=== PATIENT | female | born 1955 | race Caucasian/White ===

== ENCOUNTER 2016-12-10 17:52 | Inpatient (IN) | payer OTHER ==
--- NOTE | 2016-12-10 18:11 | PDOC ---
History of Present Illness - General Chief Complaint: Altered Mental Status Stated Complaint: altered mental status Time Seen by Provider: 12/10/16 18:02 History Source: Patient, Spouse Exam Limitations: Clinical Condition - History of Present Illness Initial Comments: CHIEF COMPLAINT: 60 y/o afebrile female with unknown PMH BIB EMS for change in mental status. HISTORY OF PRESENT ILLNESS: According to her , the patient left work around 1pm because she didn't feel well. She apparently told co-workers she was dizzy and had stomach pains. She drover herself home. The patient called her around 3pm and informed him she wasn't feeling. He states she called him 5 or 6 times in a row telling him the same thing. He states that is very unusual for her and she kept telling him she thought she was having a stroke. When he got home he states she couldn't remember anything - she did not remember going to work, couldn't remember her birthday, did not remember driving home. He denies facial drooping, slurred speech and weakness of one side. She denies any pain. Vital signs on arrival are BP of 172/96. REVIEW OF SYSTEMS: (Provided by patient and ) GENERAL/CONSTITUTIONAL: No fever/chills. No weakness. No weight change. HEAD, EYES, EARS, NOSE AND THROAT: No change in vision. No ear pain or discharge. No sore throat. CARDIOVASCULAR: No chest pain or shortness of breath. RESPIRATORY: No cough, wheezing, or hemoptysis. GASTROINTESTINAL: No abd pain, nausea, vomiting, diarrhea. GENITOURINARY: No dysuria, frequency, or change in urination. MUSCULOSKELETAL: No joint or muscle swelling or pain. No neck or back pain. SKIN: No rash or easy bruising. NEUROLOGIC: +dizziness. No headache, loss of consciousness, or loss of sensation. PHYSICAL EXAM: GENERAL: The patient is awake, alert, oriented to person, in NAD or obvious discomfort. HEAD: Normal with no signs of trauma. ENT: Pupils equal, round and reactive to light, extraocular movements intact, sclera anicteric, conjunctiva clear. Neck supple. LUNGS: Clear to auscultation bilaterally. Normal excursion. No respiratory distress or use of accessory muscles. CV: RRR, S1/S2, no MRG. Cap refill < 2 sec. ABDOMEN: Soft, non-distended, non-tender even to deep palpation, no hepatomegaly or splenomegaly, no masses. EXTREMITIES: Normal range of motion, no edema. NEUROLOGICAL: Normal speech. Gait not assessed in the ER. CN II-XII grossly intact. Normal finger to nose. Normal rapid alternating movements. No facial droop. No slurred speech. Patient cannot remember the president or what month it is. Pt has retrograde amnesia. PSYCH: Normal mood, normal affect. SKIN: Warm, dry, normal turgor, no rashes or lesions noted. Past History - Past Medical History Allergies/Adverse Reactions: Allergies Allergy/AdvReac Type Severity Reaction Status Date / Time procaine HCl [From Novocain] Allergy Verified 12/10/16 18:44 novacaine Allergy Uncoded 12/10/16 17:59 Home Medications: Ambulatory Orders Ibandronate Sodium [Boniva] 150 mg PO MONTHLY 12/11/16 Aspirin Coated [Ecotrin -] 81 mg PO DAILY #30 tab 12/12/16 Atorvastatin Ca [Lipitor] 80 mg PO HS #30 tablet 12/12/16 Heart Score/ECG Review - ECG Intrepretation Comment:: Twelve-lead EKG was performed and reviewed by Dr. Mendoza. There is normal sinus rhythm with a normal rate. The axis is normal. The intervals are normal. nonspecific ST abnormality. Impression: Abnormal twelve-lead EKG ED Treatment Course - LABORATORY CBC & Chemistry Diagram: 12/11/16 05:35 12/12/16 05:40 - RADIOLOGY Radiology Studies Ordered: Category Date Time Status HEAD CT (STROKE) [CT] Stat CT Scan 12/10/16 18:04 Ordered Medical Decision Making - Medical Decision Making A/P: 60 y/o female with memory loss for approximately 4 hours without focal neuro deficit. Code Rubalcava was called. Plan is as follows: 1. Head CT r/o stroke 2. Labs 3. EKG Head CT IMPRESSION: No evidence of acute intracranial pathology. *DC/Admit/Observation/Transfer Diagnosis at time of Disposition: TGA (transient global amnesia) - Discharge Dispostion Disposition: HOME Condition at time of disposition: Stable - Prescriptions - Referrals NIH Stroke Scale - Last Known Well Date/Time & Onset Date Last Known Well: 12/10/16 Time Last Known Well: 08:00 - Initial Evaluation Level of consciousness: Alert Ask patient the month and their age: Answers one correctly Ask patient to open & close eyes; make fist and let go: Obeys both correctly Best gaze (horizontal eye movement): Normal Visual field testing: No visual field loss Facial paresis (Show teeth/raise eyebrows/close eyes tight): Normal symmetrical movement Motor Function: Left Arm: Normal Motor Function: Right Arm: Normal (extends arm 90 (or 45) degrees for 10 seconds without drift Motor Function: Left Leg: Normal (extends leg 30 degrees for 5 seconds without drift) Motor Function: Right Leg: Normal (extends leg 30 degrees for 5 seconds without drift) Limb Ataxia: Untestable (Joint fused or limb amputated), explain: (Patient on stretcher) Sensory(Use pinprick test arms,legs,trunk,face/side to side): Normal Best language (Describe picture, name items, read sentences): No Aphasia Dysarthria (read several words): Normal articulation Extinction and Inattention: No abnormality - Total Score NIH Stroke Scale Score: 1
[2016-12-10 18:22] LABS: BASOPHIL 0.5 % (0-2.0); EOSINOPHIL 0.1 % (0-4.5); MCH 30.8 pg (25.7-33.7); MCHC 33.9 g/dl (32.0-36.0); MEAN CELL VOLUME 91.1 fl (80-96); MEAN PLT VOLUME 9.1 fl (7.5-11.1); NEUTROPHILS 89.4 % (42.8-82.8); PLATELET COUNT 255 K/MM3 (134-434); RDW 12.8 % (11.6-15.6); WHITE BLOOD COUNT 13.3 K/mm3 (4.0-10.0)
[2016-12-10 18:32] LABS: INR 1.04 (0.82-1.09); PROTHROMBIN TIME (PATIENT) 11.4 SEC (9.98-11.88)
[2016-12-10] MEDS ORDERED: LABETALOL HCL 5 MG/1 ML (100MG/20 ML VIAL) IVPUSH ONE (18:41)
[2016-12-10] MEDS ORDERED: LABETALOL HCL 5 MG/1 ML (200MG/40ML VIAL) IVPB ONE (18:43)
[2016-12-10] MEDS ORDERED: ASPIRIN 81 MG CHEWABLE TABLETS PO ONE (18:51)
[2016-12-10] MEDS ORDERED: ATORVASTATIN CA 80 MG TABLET (FP) PO ONE (18:51)
[2016-12-10 18:52] LABS: ALBUMIN 3.9 g/dl (3.4-5.0); ANION GAP 12 (8-16); CALCIUM 9.4 mg/dL (8.5-10.1); CO2 19 mmol/L (21-32); GLUCOSE,RANDOM 133 mg/dL (74-106)
[2016-12-10] MEDS ORDERED: ATORVASTATIN CA 80 MG TABLET (FP) ONE (18:55)
[2016-12-10] MEDS ORDERED: ASPIRIN 81 MG CHEWABLE TABLETS ONE (18:55)
[2016-12-10 18:57] LABS: ALK PHOS 74 U/L (45-117); BILIRUBIN,TOTAL 0.4 mg/dL (0.2-1.0); CREATININE 0.6 mg/dL (0.55-1.02); SGOT/AST 22 U/L (15-37); SGPT/ALT 28 U/L (12-78); TOT PROT 7.3 g/dl (6.4-8.2); TROPONIN I 0.06 ng/ml (0.00-0.05)
[2016-12-10 19:02] LABS: URINE APPEARANCE CLEAR; URINE BILIRUBIN NEGATIVE (NEGATIVE); URINE COLOR STRAW; URINE GLUCOSE (UA) NEGATIVE (NEGATIVE); URINE KETONE 1+ (NEGATIVE); URINE LEUK ESTERASE NEGATIVE (NEGATIVE); URINE NITRITE NEGATIVE (NEGATIVE); URINE UROBILINOGEN NEGATIVE mg/dL (0.2-1.0)
[2016-12-10 19:06] LABS: URINE BLOOD 2+ (NEGATIVE); URINE PROTEIN 1+ (NEGATIVE)
--- NOTE | 2016-12-10 19:17 | PDOC ---
*Physical Exam - Vital Signs Last Vital Signs Temp Pulse Resp BP Pulse Ox 98.0 F 78 16 178/95 98 12/10/16 18:00 12/10/16 18:59 12/10/16 18:59 12/10/16 19:09 12/10/16 18:59 - Physical Exam Comments: 12/10/16 19:11 The patient was examined by [FATOUMATA Ramires] under my direct supervision. I personally evaluated the patient. I concur with the above findings and the plan of care. Patient is a well-appearing 60-year-old female brought in by EMS for acute onset of confusion and anterograde amnesia on the day of arrival. Patient was last in her baseline state of health on the morning of the day of arrival at 7: 30 AM. She next contacted him at approximately 3 PM to inform him that she had no recollection of the events of the day. She had contacted him on several occasions consequently repeating the same thing. Patient also complained of mild lower abdominal cramps without nausea/vomiting/diarrhea/fever/chills/trauma /seizures. There is no known toxic ingestion. EXAMINATION CONSTITUTIONAL: Well-appearing; well-nourished; in no apparent distress HEAD: Normocephalic; atraumatic EYES: PERRL; EOM intact ENMT: External appears normal; normal oropharynx NECK: Supple; non-tender; no cervical lymphadenopathy CARD: Normal S1, S2; no murmurs, rubs, or gallops RESP: Normal chest excursion with respiration; breath sounds clear and equal bilaterally; no wheezes, rhonchi, or rales ABD: Soft, non-distended; non-tender; no palpable organomegaly, no palpable hernias EXT: Normal ROM in all four extremities; non-tender to palpation; distal pulses intact SKIN: Warm, dry, no rash NEURO: Patient is alert, oriented to self and city only; patient is unable to recall the date or the day of the week; Cranial nerves II through XII are grossly intact; motor is 5 of 54; there is no pronation drift; gait is stable; patient is unable to recall 3 objects, follows complex commands; ED Treatment Course - LABORATORY CBC & Chemistry Diagram: 12/10/16 18:06 12/10/16 18:06 - ADDITIONAL ORDERS Additional order review: Laboratory Results 12/10/16 12/10/16 12/10/16 18:40 18:06 18:06 INR Sodium 133 L Potassium 3.6 Chloride 102 Carbon Dioxide 19 L Anion Gap 12 BUN 12 Creatinine 0.6 Creat Clearance w eGFR > 60 POC Glucometer Random Glucose 133 H Calcium 9.4 Total Bilirubin 0.4 AST 22 ALT 28 Alkaline Phosphatase 74 Creatine Kinase 68 Troponin I 0.06 H Total Protein 7.3 Albumin 3.9 Urine Color Straw Urine Appearance Clear Urine pH 8.0 Urine Protein 1+ H Urine Glucose (UA) Negative Urine Ketones 1+ H Urine Blood 2+ H Urine Nitrite Negative Urine Bilirubin Negative Urine Urobilinogen Negative Ur Leukocyte Esterase Negative Blood Type Cancelled Antibody Screen Cancelled Spec Expiration Date Cancelled 12/10/16 12/10/16 18:06 17:58 INR 1.04 Sodium Potassium Chloride Carbon Dioxide Anion Gap BUN Creatinine Creat Clearance w eGFR POC Glucometer 154.16608 Random Glucose Calcium Total Bilirubin AST ALT Alkaline Phosphatase Creatine Kinase Troponin I Total Protein Albumin Urine Color Urine Appearance Urine pH Urine Protein Urine Glucose (UA) Urine Ketones Urine Blood Urine Nitrite Urine Bilirubin Urine Urobilinogen Ur Leukocyte Esterase Blood Type Antibody Screen Spec Expiration Date 12/10/16 12/10/16 18:06 17:58 RBC 4.30 MCV 91.1 MCHC 33.9 RDW 12.8 MPV 9.1 Neutrophils % 89.4 H Lymphocytes % 5.5 L Monocytes % 4.5 Eosinophils % 0.1 Basophils % 0.5 POC Glucometer [id number] - Medications Given in the ED: ED Medications Discontinued Medications Generic Name Dose Route Start Last Admin Trade Name Freq PRN Reason Stop Dose Admin Aspirin 162 mg 12/10/16 18:51 12/10/16 18:59 Asa - PO 12/10/16 18:52 162 mg ONCE ONE Administration Atorvastatin Calcium 80 mg 12/10/16 18:51 12/10/16 18:59 Lipitor - PO 12/10/16 18:52 80 mg ONCE ONE Administration Labetalol HCl 20 mg 12/10/16 18:41 12/10/16 18:51 Normodyne Injection - IVPUSH 12/10/16 18:42 20 mg ONCE ONE Administration Medical Decision Making - Medical Decision Making 12/10/16 19:56 Patient 60-year-old female who presents with signs and symptoms of transient global amnesia. CT of head shows no evidence of acute intracranial pathology. Patient's serial neurological evaluation reveals no focal deficits. I discussed the case with Dr. De Leon of neurology. He recommends administration of aspirin, Lipitor, MRI of brain and carotid Doppler with admission to stroke for neurological observation. Will admit. *DC/Admit/Observation/Transfer Diagnosis at time of Disposition: TGA (transient global amnesia) - Discharge Dispostion Admit: Yes - Referrals Referrals: Felipe Lundy [Primary Care Provider] - - Patient Instructions - Post Discharge Activity
[2016-12-10 19:18] LABS: URINE BACTERIA RARE /hpf (NONE SEEN); URINE RBC 11 /hpf (0-3); URINE WBC 2 /hpf (3-5)
[2016-12-10] MEDS ORDERED: SODIUM CHLORIDE 500 ML IV STA ×2 (19:32→20:16)
[2016-12-10] MEDS ORDERED: ONDANSETRON 4 MG/2 ML VIAL IVPB ONE (19:32)
[2016-12-10] MEDS ORDERED: ONDANSETRON 4 MG/2 ML VIAL ONE (19:32)
--- NOTE | 2016-12-10 19:41 | PN ---
Teaching Attending Note Name of Resident: Aristeo Arroyo ATTENDING PHYSICIAN STATEMENT I saw and evaluated the patient. I reviewed the resident's note and discussed the case with the resident. I agree with the resident's findings and plan as documented. SUBJECTIVE:60 y/o female with no signifciant medical history brought to ED by c/o not feeling her self. Patient is a poor history due to her medical condition and report that patient suddenly became confuse and had sudden short term memory loss. Patient could not remember what happened to her today and as per vomited and complained of nausea and some stomach ache. OBJECTIVE: Patient alert and oriented to self and place, unable to remember exactly what happened to her today but assisted memory intact, no focal neurological differences. Labs reviewed and Troponin 0.43, WBCs 13K with neutrophils 89%, CT negative, CXR clear, UA negative ASSESSMENT AND PLAN: TGA vs TIA vs CVA- and r/o ACS trend troponin- aspirin given then continue daily Admit to telemetry ECHO, Carotid doppler and repeat CT head Neuro consult Neuro checks Follow urine tox, TSH. Consider LP Continue care as documented in H&P
--- NOTE | 2016-12-10 19:54 | HP ---
HISTORY OF PRESENT ILLNESS: Patient is a 60 year old female with no PMHx who was brought in by EMS for acute onset of confusion and amnesia. Patient reports that she was last at her baseline this morning around 07:00 before going to work. He reports receiving multiple phone calls from her stating that she was not feeling well. Patient has no recollection of calling her . When speaking to the patient she was unable to recall what happened today, including going to work this morning. When I walked out of the room and returned five minutes later, patient did not recognize me or remember speaking to me. Patient 's reports that this is very unusual and that she's had no history of memory loss or forgetting things. Patient also complains of nonradiating mid- epigastric pain associated with one episode of nonbloody vomiting in the emergency department. Patient is unable to recall when the pain started and has no memory of vomiting. Otherwise, patient denies fever, chills, headaches , acute vision changes, chest pain, palpitations, shortness of breath, dysuria, frequency, hematuria. Patient's denies that she uses any drugs or toxic ingestion. PHYSICAL EXAMINATION Vital Signs - 24 hr 12/10/16 12/10/16 12/10/16 18:00 18:45 18:59 Temperature 98.0 F Pulse Rate 84 Pulse Rate [ 78 78 Apical] Respiratory 18 16 16 Rate Blood Pressure 172/96 Blood Pressure 187/98 174/102 [Right Arm] O2 Sat by Pulse 100 98 98 Oximetry (%) 12/10/16 19:09 Temperature Pulse Rate Pulse Rate [ Apical] Respiratory Rate Blood Pressure Blood Pressure 178/95 [Right Arm] O2 Sat by Pulse Oximetry (%) GENERAL: Anxious, Awake, alert, and fully oriented, and in no acute distress HEAD: Normal with no signs of trauma. EYES: Pupils equal, round and reactive to light, extraocular movements intact, sclera anicteric, conjunctiva clear. EARS, NOSE, THROAT: Oropharynx clear without exudates. Moist mucous membranes. NECK: Normal range of motion. LUNGS: Breath sounds equal, clear to auscultation bilaterally. No wheezes, and no crackles. No accessory muscle use. HEART: Regular rate and rhythm, normal S1 and S2 without murmur, rub or gallop. ABDOMEN: Soft, tenderness upon palpation of the mid-epigastric and lower region , not distended, normoactive bowel sounds, no guarding, no rebound. LOWER EXTREMITIES: No peripheral edema. NEUROLOGICAL: Normal Speech, Motor strength 5/5, sensory intact, no facial droop. PSYCHIATRIC: Cooperative. Good eye contact. Anxious Laboratory Results - last 24 hr 12/10/16 12/10/16 12/10/16 17:58 18:06 18:06 WBC 13.3 H RBC 4.30 Hgb 13.3 Hct 39.1 MCV 91.1 MCH 30.8 MCHC 33.9 RDW 12.8 Plt Count 255 MPV 9.1 Neutrophils % 89.4 H Lymphocytes % 5.5 L Monocytes % 4.5 Eosinophils % 0.1 Basophils % 0.5 INR 1.04 Sodium Potassium Chloride Carbon Dioxide Anion Gap BUN Creatinine Creat Clearance w eGFR POC Glucometer [id number] Random Glucose Calcium Total Bilirubin AST ALT Alkaline Phosphatase Creatine Kinase Troponin I Total Protein Albumin Urine Color Urine Appearance Urine pH Urine Protein Urine Glucose (UA) Urine Ketones Urine Blood Urine Nitrite Urine Bilirubin Urine Urobilinogen Ur Leukocyte Esterase Urine RBC Urine WBC Ur Epithelial Cells Urine Bacteria Blood Type Antibody Screen Spec Expiration Date 12/10/16 12/10/16 12/10/16 18:06 18:06 18:40 WBC RBC Hgb Hct MCV MCH MCHC RDW Plt Count MPV Neutrophils % Lymphocytes % Monocytes % Eosinophils % Basophils % INR Sodium 133 L Potassium 3.6 Chloride 102 Carbon Dioxide 19 L Anion Gap 12 BUN 12 Creatinine 0.6 Creat Clearance w eGFR > 60 POC Glucometer Random Glucose 133 H Calcium 9.4 Total Bilirubin 0.4 AST 22 ALT 28 Alkaline Phosphatase 74 Creatine Kinase 68 Troponin I 0.06 H Total Protein 7.3 Albumin 3.9 Urine Color Straw Urine Appearance Clear Urine pH 8.0 Urine Protein 1+ H Urine Glucose (UA) Negative Urine Ketones 1+ H Urine Blood 2+ H Urine Nitrite Negative Urine Bilirubin Negative Urine Urobilinogen Negative Ur Leukocyte Esterase Negative Urine RBC 11 Urine WBC 2 Ur Epithelial Cells Rare Urine Bacteria Rare Blood Type Cancelled Antibody Screen Cancelled Spec Expiration Date Cancelled HEAD CT (12/10/17): No acute pathology ASSESSMENT/PLAN: Patient is a 60 year old female with no PMHx who presents for acute onset of confusion and amnesia. Patient admitted for further monitoring and management. Acute Amnesia mostly Anterograde -With retrograde amnesia, possibly global amnesia -R/O Stroke vs. infectious cause vs metabolic causes vs. psychogenic etiology -NIHSS: 1 -MMSE: 24/30 -Neurology called by ED staff and recommended ASA and Lipitor. Will continue ASA and Lipitor daily -ECHO, CAROTID, and MRI ordered -RPR, Uirne Tox, TSH, Lipid ordered -Speech and Swallow, PT ordered. Will consider LP Elevated BP -Likely secondary to severe anxiety -Lopressor 5mg Q4H PRN -Continue to monitor BP Elevated Troponins -Rule out ACS -Second Trop 0.4 -Repeat EKG and Trop in the morning -Continue ASA Abdominal pain with Vomiting -Possibly gastroenteritis -Protonix daily -Zofran 4mg Q6H PRN Hyponatremia -Level 133 -IVF with NS -Monitor BMP F/E/N -IV NS @50mls/hr -Hyponatremia. C/w IV NS -NPO until speech and swallow eval Prophylaxis -Heparin 5000 units SQ Q8H for DVT -Protonix for GI Disposition -Full code -Admit to tele. MRI in the morning. Visit type - Emergency Visit Emergency Visit: Yes ED Registration Date: 12/10/16 Care time: The patient presented to the Emergency Department on the above date and was hospitalized for further evaluation of their emergent condition. - New Patient This patient is new to me today: Yes Date on this admission: 12/11/16 - Critical Care Critical Care patient: No
[2016-12-10] MEDS ORDERED: FAMOTIDINE 20 MG/50 ML IVPB 50 ML IVPB ONE ×2 (20:16→20:19)
[2016-12-10] MEDS ORDERED: SODIUM CHLORIDE 1,000 ML IV SCH (22:15)
[2016-12-10] MEDS ORDERED: ONDANSETRON 4 MG/2 ML VIAL IVPB PRN (22:15)
[2016-12-10] MEDS ORDERED: METOPROLOL TARTRATE 5 MG/5 ML VIAL IVPUSH PRN ×2 (22:35→22:46)
[2016-12-10] MEDS: HEPARIN NA (PORCINE) 5,000 UNITS/ML 1ML VIAL SQ SCH (22:57)
--- NOTE | 2016-12-10 23:11 | HP ---
CHIEF COMPLAINT: Altered mental status/ Amnesia PCP: Felipe Lundy HISTORY OF PRESENT ILLNESS: 60 year old white female with PMH of genital herpes, who presented to the ED by EMS from [facility] (urgent care) due to confusion, amnesia. the patient was last seen on her base line state of health today at 1.30 PM at her work, when she start not feeling well and dizzy. She drove home by herself and she called her multiple times and informed him about her confusion. arrived around 3 PM and she completely forgot about the event. Patient was not able to remember any thing since the morning. she also complained of a mild lower abdominal cramps, 3/10, radiating to her back and kidney. Patient denies any fever, chills, Diarrhea or constipation. but she was nauseated on arrival and vomited twice. denies any Headache, Blurry vision,Seizure symptoms, weakness or numbness, slurred speech or facial drop.She denies having any urinary symptoms. ER course was notable for: 1- Twelve-lead EKG: There is normal sinus rhythm with a normal rate. The axis is normal. The intervals are normal. nonspecific ST abnormality. 2- Head CT scan : NO acute pathology, NO interacranial hemorrhage or mass effect. 3- Aspirin, lipitor and labetolol was given in the ED. Recent Travel:NO PAST MEDICAL HISTORY: Genital herpes. PAST SURGICAL HISTORY: Appendicitis at age of 14 . Social History: Smoking:None Alcohol:Socially Drugs: None Family History: Hodgkin Lymphoma in brother, Mother Myelodysplasia, father Leukemia, another brother Pacemaker. Allergies procaine HCl [From Novocain] Allergy (Verified 12/10/16 18:44) novacaine Allergy (Uncoded 12/10/16 17:59) HOME MEDICATIONS: Home Medications Medication Instructions Recorded Unobtainable [Unobtainable] 12/10/16 Home Medication List Medication Instructions Recorded Confirmed Type Ibandronate Sodium [Boniva] 150 mg PO MONTHLY 12/11/16 12/11/16 History Valacyclovir HCl [Valtrex -] 500 mg PO BID PRN 12/11/16 12/11/16 History Active Medications Generic Name Dose Route Start Last Admin Trade Name Freq PRN Reason Stop Dose Admin Aspirin 81 mg 12/11/16 10:00 Ecotrin - PO DAILY JENNYFER Atorvastatin Calcium 80 mg 12/11/16 22:00 Lipitor - PO HS JENNYFER Heparin Sodium (Porcine) 5,000 unit 12/10/16 22:45 12/10/16 22:57 Heparin - SQ 5,000 unit TID JENNYFER Administration Sodium Chloride 1,000 mls @ 50 mls/hr 12/10/16 22:15 12/10/16 22:57 Normal Saline - IV 12/11/16 22:28 50 mls/hr ASDIR JENNYFER Administration Metoprolol Tartrate 5 mg 12/10/16 22:46 12/11/16 00:02 Lopressor Injection - IVPUSH 5 mg Q6H PRN Administration HYPERTENSION Ondansetron HCl 4 mg 12/10/16 22:15 Zofran Injection IVPB Q6H PRN NAUSEA Pantoprazole Sodium 40 mg 12/11/16 10:00 Protonix - PO DAILY [facility] SYSTEMS CONSTITUTIONAL: Absent: fever, chills, diaphoresis, generalized weakness, malaise, loss of appetite, weight change HEENT: Absent: rhinorrhea, nasal congestion, throat pain, throat swelling, difficulty swallowing, mouth swelling, ear pain, eye pain, visual changes CARDIOVASCULAR: Absent: chest pain, syncope, palpitations, irregular heart rate, lightheadedness , peripheral edema RESPIRATORY: Absent: cough, shortness of breath, dyspnea with exertion, orthopnea, wheezing, stridor, hemoptysis GASTROINTESTINAL: Absent: +abdominal pain, NO abdominal distension, +nausea, +vomiting, NO diarrhea, constipation, melena, hematochezia GENITOURINARY: Absent: dysuria, frequency, urgency, hesitancy, hematuria, flank pain, genital pain MUSCULOSKELETAL: Absent: myalgia, arthralgia, joint swelling, back pain, neck pain SKIN: Absent: rash, itching, pallor HEMATOLOGIC/IMMUNOLOGIC: Absent: easy bleeding, easy bruising, lymphadenopathy, frequent infections ENDOCRINE: Absent: unexplained weight gain, unexplained weight loss, heat intolerance, cold intolerance NEUROLOGIC: Absent: headache, focal weakness or paresthesias, +dizziness, unsteady gait, seizure,+ mental status changes, bladder or bowel incontinence PSYCHIATRIC: Absent: anxiety, depression, suicidal or homicidal ideation, hallucinations. PHYSICAL EXAMINATION Vital Signs - 24 hr 12/10/16 12/10/16 12/10/16 18:00 18:45 18:59 Temperature 98.0 F Pulse Rate 84 Pulse Rate [ 78 78 Apical] Respiratory 18 16 16 Rate Blood Pressure 172/96 Blood Pressure 187/98 174/102 [Right Arm] O2 Sat by Pulse 100 98 98 Oximetry (%) GENERAL: The patient is awake, alert, oriented to person, in NAD or obvious discomfort. HEAD: Normal with no signs of trauma. EYES: Pupils equal, round and reactive to light, extraocular movements intact, sclera anicteric, conjunctiva clear. No lid lag. EARS, NOSE, THROAT: Ears normal, nares patent, oropharynx clear without exudates. Moist mucous membranes. NECK: Normal range of motion, supple without lymphadenopathy, JVD, or masses. LUNGS: Breath sounds equal, clear to auscultation bilaterally. No wheezes, and no crackles. No accessory muscle use. HEART: Regular rate and rhythm, normal S1 and S2 without murmur, rub or gallop. ABDOMEN: Soft, nontender, not distended, normoactive bowel sounds, no guarding, no rebound, no masses. No hepatomegaly or splenomegaly. MUSCULOSKELETAL: Normal range of motion at all joints. No bony deformities or tenderness. No CVA tenderness. UPPER EXTREMITIES: 2+ pulses, warm, well-perfused. No cyanosis. No clubbing. No peripheral edema. LOWER EXTREMITIES: 2+ pulses, warm, well-perfused. No calf tenderness. No peripheral edema. NEUROLOGICAL: Cranial nerves II-XII intact. Normal speech. Normal gait.Normal finger to nose. Normal rapid alternating movements. No facial droop. Patient cannot remember the president or what month it is. Reflexes are +2 and symmetric at the biceps, triceps,knees, and ankles.plantar response are flexor. Light touch, pinprick, position sense and vibration sense are intact in the fingers and toes.Romberg are absent. PSYCHIATRIC: Cooperative. Good eye contact. Appropriate mood and affect. she reports some anxiety. SKIN: Warm, dry, normal turgor, no rashes or lesions noted, normal capillary refill. MMSE Score 23: 1- she can remember the year and the season but not the date, day or month. 07/06 2- she knows the state, country, town, floor, but not the hospital name 09/03 3-She name 3 object after the examiner.08/01 4- She spell word 'World' back word.10/03 5- She can not rember the 3 objects . 0 6- she can name the object I show her. 07/03 7- she can repeat the phrace 'NO ifs, ands, or buts' .06/01 8-follow commands : 08/01 9-She can read and follow the written instruction.06/01 10-She can make a sentence about any thing. 06/01 11- She can copy the picture. 06/01 Level of consciousness: Alert Ask patient the month and their age: Answers one correctly Ask patient to open & close eyes; make fist and let go: Obeys both correctly Best gaze (horizontal eye movement): Normal Visual field testing: No visual field loss Facial paresis (Show teeth/raise eyebrows/close eyes tight): Normal symmetrical movement Motor Function: Left Arm: Normal Motor Function: Right Arm: Normal (extends arm 90 (or 45) degrees for 10 seconds without drift Motor Function: Left Leg: Normal (extends leg 30 degrees for 5 seconds without drift) Motor Function: Right Leg: Normal (extends leg 30 degrees for 5 seconds without drift) Limb Ataxia: Untestable (Joint fused or limb amputated), explain: (Patient on stretcher) Sensory(Use pinprick test arms,legs,trunk,face/side to side): Normal Best language (Describe picture, name items, read sentences): No Aphasia Dysarthria (read several words): Normal articulation Extinction and Inattention: No abnormality - Total Score NIH Stroke Scale Score: 1 *Twelve-lead EKG: There is normal sinus rhythm with a normal rate. The axis is normal. The intervals are normal. nonspecific ST abnormality. *Head CT scan : NO acute pathology, NO interacranial hemorrhage or mass effect. CBC, BMP 12/10/16 18:06 12/10/16 18:06 Troponin, BNP 12/10/16 12/10/16 18:06 23:30 Troponin I 0.06 H 0.43 H ASSESSMENT/PLAN: 60 year old white female with PMH of genital herpes, who presented to the ED by EMS from [facility] (urgent care) due to confusion, amnesia. she was admitted for [facility] for further evaluation. 1- Transient global amnesia 2/2 TIA/CVA, Acute * MMSE score 23, NIH score 1, mild amnesia * CT head without contrast was negative for any actute intracranial pathology. * Aspirin, lipitor and labetolol was given in the ED * Neurology consultation. * Carotid Doppler * MRI brain * Echocardiogram * TSH * Syphlis(RPR) to rule out STD * Urine toxicology * Repeat CBC , BMP in the morning. * raped swallow evaluation passed * consider lump puncture to R/o HSV encephalitis if no improvement * Continue Aspirin 81 mg, Lipitor , Metolorolol 5 mg Q4h PRN. 2- Trop elevation , R/O ACS * trop I 0.06, 0.43 * F/u trop III * repeat EKG in the morning * copra sampler * Aspirin 81 mg * cardiology consult 3- Elevated BP * 175/95 on admission * Labetolol was given in ED * Monitor BP with goal 140-160/80-90 * contine Metoprol 5 mg IV Q4 PRN * hold Metoprol if HR below 60 * Low sodium diet 3- Gastroenteritis , Acute , * IV NS @ 75 CC /H * Zofran 4 mg IVPB Q6H PRN for nausea * Protonix 40 mg PO daily 4- F/E/N * IV NS 0.9 % 75 ml /hour * Electrolytes WNL * Nutrition: Low sodium Diet. * * 5- Prophylaxis : * DVT moderate risk, will start Hep 5000 units SQ, TID . * Protonix 40 mg PO daily 6- Dispo * pt was admitted to [facility] for evaluation. * patient is full code
[2016-12-11] MEDS ORDERED: ZOLPIDEM TARTRATE 5 MG TABLET PO ONE (00:49)
[2016-12-11] MEDS ORDERED: ZOLPIDEM TARTRATE 5 MG TABLET ONE (01:04)
[2016-12-11 01:19] VITALS: BMI 22.1
[2016-12-11] MEDS ORDERED: METOPROLOL TARTRATE 5 MG/5 ML VIAL ONE (01:46)
[2016-12-11] MEDS ORDERED: PANTOPRAZOLE 40 MG TABLET (FP) PO ONE (01:46)
[2016-12-11] MEDS: METOPROLOL TARTRATE 5 MG/5 ML VIAL IVPUSH ONE ×2 (01:55→02:05)
[2016-12-11] MEDS: HEPARIN NA (PORCINE) 5,000 UNITS/ML 1ML VIAL SQ SCH (05:26)
[2016-12-11] MEDS: METOPROLOL TARTRATE 5 MG/5 ML VIAL IVPUSH PRN (05:26)
[2016-12-11] MEDS ORDERED: MAG HYDROX/AL HYDROX/SIMETH 30 ML UNIT-DOSE CUP PO ONE (06:03)
[2016-12-11 07:21] LABS: BASOPHIL 0.3 % (0-2.0); MCH 31.7 pg (25.7-33.7); MCHC 34.8 g/dl (32.0-36.0); MEAN CELL VOLUME 91.1 fl (80-96); MEAN PLT VOLUME 8.9 fl (7.5-11.1); NEUTROPHILS 87.9 % (42.8-82.8); PLATELET COUNT 249 K/MM3 (134-434); RDW 12.7 % (11.6-15.6); WHITE BLOOD COUNT 14.5 K/mm3 (4.0-10.0)
[2016-12-11] MEDS ORDERED: SODIUM CHLORIDE 1,000 ML IV SCH (07:45)
[2016-12-11 07:52] LABS: INR 1.07 (0.82-1.09); PROTHROMBIN TIME (PATIENT) 11.8 SEC (9.98-11.88)
[2016-12-11 07:55] LABS: ACTIVATED PTT 30.8 SECONDS (26.9-34.4)
[2016-12-11 07:56] LABS: ANION GAP 11 (8-16); CALCIUM 8.7 mg/dL (8.5-10.1); CHOLESTEROL 141 mg/dL (50-200); CO2 22 mmol/L (21-32); CREATININE 0.6 mg/dL (0.55-1.02); GLUCOSE,RANDOM 128 mg/dL (74-106); LDL CHOLESTEROL (ONLY SJRH) 74 mg/dL (5-100)
[2016-12-11 07:57] LABS: THYROID STIMULATING HORMONE 0.23 uIU/ml (0.358-3.74)
--- NOTE | 2016-12-11 08:50 | CON.NEURO ---
Consult - History of Present Illness History of Present Illness: 60 year old female with no PMHx who was brought in by EMS for acute onset of confusion and amnesia. Patient reports that she was last at her baseline this morning around 07:00 before going to work. He reports receiving multiple phone calls from her stating that she was not feeling well. Patient has no recollection of calling her . When speaking to the patient she was unable to recall what happened today, including going to work this morning. When I walked out of the room and returned five minutes later, patient did not recognize me or remember speaking to me. Patient's reports that this is very unusual and that she's had no history of memory loss or forgetting things. Patient also complains of nonradiating mid-epigastric pain associated with one episode of nonbloody vomiting in the emergency department. Patient is unable to recall when the pain started and has no memory of vomiting. Otherwise, patient denies fever, chills, headaches, acute vision changes, chest pain, palpitations, shortness of breath, dysuria, frequency, hematuria. Patient' s denies that she uses any drugs or toxic ingestion. THis AM -- still has poor recollection of yesterday events though is able to recall todays events; no similar events in past . no hx of seizure. no MORA or focal motor,sensory c/o. MRI BRAIN :volume loss, no new stroke - Past Medical History ...: No - Alcohol/Substance Use Hx Alcohol Use: Yes (about 4 glasses of wine per week) - Smoking History Smoking history: Never smoked Have you smoked in the past 12 months: No Home Medications - Allergies Allergies/Adverse Reactions: Allergies Allergy/AdvReac Type Severity Reaction Status Date / Time procaine HCl [From Novocain] Allergy Verified 12/10/16 18:44 novacaine Allergy Uncoded 12/10/16 17:59 - Home Medications Home Medications: Ambulatory Orders Ibandronate Sodium [Boniva] 150 mg PO MONTHLY 12/11/16 Valacyclovir HCl [Valtrex -] 500 mg PO BID PRN 12/11/16 Physical Exam-Neuro Vital Signs: Vital Signs Temperature 98.6 F 12/11/16 05:25 Pulse Rate 68 12/11/16 06:42 Respiratory Rate 18 12/11/16 06:42 Blood Pressure 157/77 12/11/16 06:42 O2 Sat by Pulse Oximetry (%) 100 12/10/16 21:45 Constitutional: Yes: Well Nourished, No Distress Labs: CBC, BMP 12/11/16 05:35 12/11/16 05:35 INR, PTT INR 1.07 (0.82-1.09) 12/11/16 05:35 - Neuro Exam Level Of Consciousness: Yes: Alert, Oriented to Person (good memory though can not recall yesterday events, EOMI, VFF, no facial, motor 5/5, sesnory intact, reflxes WNL) NIH Stroke Scale - Total Score NIH Stroke Scale Score: 0 Imaging - Results MRI: Report Reviewed, Image Reviewed Assessment/Plan Suspect Transient global amnesia, back to baseline MRI BRAIN no structural pathology/stroke FU Dopplers, ECHO, no evidence of seizure ASA may be causing GI irratation-change to ECOTRIN stable for DC from neuro stand point outpt FU thanks DR De Leon [phone]
--- NOTE | 2016-12-11 09:04 | CONSULT ---
Admitting History and Physical - Past Medical History ...: No - Smoking History Smoking history: Never smoked Have you smoked in the past 12 months: No - Alcohol/Substance Use Hx Alcohol Use: Yes (about 4 glasses of wine per week) History - Admission Reason For Visit: TRANSIENT GLOBAL AMNESIA - Hearing Hearing: Normal Speech Evaluation - Communication Primary Language: NEPALI Communication: Yes: Within Normal Limits Oral Expression Ability: Yes: No Impairment - Speech Production Apraxia: No Able to Make Needs Known: Yes: WNL Intelligibility: Yes: WNL - Speech Characteristics Voice Loudness: Normal Voice Pitch: Yes: Normal Voice Phonatory-based Quality: Yes: Normal Speech Pattern: Normal Nasal Resonance: Normal Articulation: Yes: Precise Rate of Speech: Intact - Language/Auditory Comprehension Follows: Yes: Complex Commands (WFL) Observation: Able to respond to yes/no queries: Yes, Yes/No Confusion: No, Comprehends Conversational Speech: Yes, Benefits from Slow Speech: No, Benefits from Repetiton: No, Benefits from Increased Volume of Speech: No - Language/Verbal Expression Able to Respond to Simple Queries: Yes: WNL Able to Communicate Wants and Needs: Yes: WNL Functional Communication Status: Yes: WNL Aware of Errors: Yes Attempts to Correct Errors: Yes Use of Gestures: No Written Expression: WFL Oral Expression: WFL Reading Comprehension: WFL Calculations: not examined Attention: Yes: Intact - Memory/Perception investment sales assistant Memory: Yes: WNL Short Term Memory: Yes: WNL - Swallow Evaluation/Bedside Assessment Current Nutritional Intake: Regular, Thin Liquids Oral Secretions: Yes: WFL Tracheostomy Present: No Patient on Ventilator: No Dentition: Yes: Adequate Facial Symmetry at Rest: Symmetrical Facial Symmetry on Retraction: Symmetrical Facial Movement: Controlled Sensation: Normal Facial Comment: WF for speech and swalowing purposes. Jaw Position: Closed at Rest Against Resistance Opening: Normal Against Resistance Closing: Normal Pucker Lips: Normal Smile: Normal Lips, Comment: WF for speech and swalowing purposes. Lingual Movement: Normal Lingual Speed of Movement: Normal Lingual Movement Strgth Against Opposition: Normal Lingual Movement Characteristics: Normal Lingual Comment: [facility] for speech and swalowing purposes. Soft Palate Description: Normal Color, Normal Arch Hard Palate Description: Normal Color, Normal Arch Gag Reflex: Strong Bite Reflex: Present Velopharyngeal Movement: Normal Laryngeal Elevation: WFL Laryngeal Movement: Able to Palpate Needs Assistance: No Rate of Intake: WFL Bolus Size: Small Labial Seal: WFL Chewing: WFL Oral Prep Time: WFL A-P Transit: WFL Pocketing: None Coughing/Throat Clear: No Other Findings/Remarks: 60 yo female seen at bedside during breakfast for swallow eval to rule out dysphagia with spouse present. Pt is verbal, A&Ox3, cooperative. Vocal quality and airway protection are WFL at this time. Oral motor examination revealed all structures are WFL for speech and swallowing purposes at this time. Pt admitted to [facility] for AMS and acute memory loss. Pt reported to this clinician that she has had a recent loss of appetite and at the moment is just thirsty. Also reported minor abdominal pain. Pt given po trials of pureed, and regular solids without assistance revealed reduced acceptance and small bolus sizes, adequate mastication and transport. Pharyngeal swallows appears timely with no coughing, changes in respiration or voicing. Thin liquids trials without assistance via cup and straw were unremarkable for dysphagia and / or aspiration. Recommendations - Speech Evaluation, Impression/Plan Impression: 60 year old female presents with adequate vocal quality and no s/s of dysphagia at this time. Correction Goals: tolerate the least restrictive diet without s/s of aspiration. Short Term Goals: tolerate regular solids and thin liquids without s/s of aspiration. - Dysphagia Impressions/Plan Swallowing Skills: WFL Dysphagia Impressions: No Impairment Dysphagia Treatment Plan: Small Bites, Safe Rate Dysphagia Evaluation Summary: 60 yo female does not present with dysphagia at this time. No s/s of aspiration at this time. Recommendations: Continue with regular solids and thin liquids as tolerated. Results given to charge lpn and pcp via chart. Recommendations: GI Consult (consider secondary to reported minor abdominal.) - Recommendations Diet Consistency: Regular Medication Administration: Whole with water Liquids: Thin Liquids
[2016-12-11] MEDS ORDERED: POTASSIUM CHLORIDE ORAL LIQUID 20 MEQ/15 ML PO ONE (09:15)
[2016-12-11] MEDS ORDERED: PANTOPRAZOLE 40 MG TABLET (FP) PO SCH (10:00)
[2016-12-11] MEDS: ASPIRIN COATED 81 MG TABLET.EC PO SCH (10:01)
[2016-12-11] MEDS: PANTOPRAZOLE 40 MG TABLET (FP) PO SCH (10:01)
[2016-12-11 10:07] LABS: URINE MARIJUANA THC NEGATIVE ng/ml (CUTOFF=50)
[2016-12-11 10:22] LABS: TROPONIN I 0.75 ng/ml (0.00-0.05)
--- NOTE | 2016-12-11 11:12 | PN ---
Physical Exam: SUBJECTIVE: Patient seen and examined at bedside. No acute events overnight. Today, patient is oriented and states that she has mid-epigastric pain and decreased appetite. Denies shortness of breath, diaphoresis, radiating chest pain, nausea or vomiting. OBJECTIVE: Vital Signs Period Temp Pulse Resp BP Sys/Floyd Pulse Ox Last 24 Hr 98.6 F-99.4 F 66-80 18-20 153-184/62-95 98-100 GENERAL: The patient is awake, alert, and oriented HEAD: Normal with no signs of trauma. EYES: PERRL, extraocular movements intact, sclera anicteric, conjunctiva clear. ENT: Ears normal, nares patent, oropharynx clear without exudates, moist mucous membranes. NECK: Trachea midline, supple. LUNGS: Breath sounds equal, clear to auscultation bilaterally, no wheezes, no crackles, no accessory muscle use. HEART: Regular rate and rhythm, S1, S2 without murmur, rub or gallop. ABDOMEN: tender to palpation in mid-epigastric area EXTREMITIES: 2+ posterior tibial pulses, warm, well-perfused, no edema. NEUROLOGICAL: Cranial nerves II through XII grossly intact. Normal speech. Cerebellar function intact, AAOx3. 5/5 motor strength in upper and lower extremities. Memory, repetition, recall intact. Laboratory Results - last 24 hr 12/10/16 12/11/16 12/11/16 23:30 05:35 05:35 WBC 14.5 H RBC 4.12 Hgb 13.1 Hct 37.6 MCV 91.1 MCH 31.7 MCHC 34.8 RDW 12.7 Plt Count 249 MPV 8.9 Neutrophils % 87.9 H Lymphocytes % 6.0 L Monocytes % 5.8 Eosinophils % 0.0 D Basophils % 0.3 INR 1.07 PTT (Actin FS) 30.8 Sodium Potassium Chloride Carbon Dioxide Anion Gap BUN Creatinine Random Glucose Calcium Troponin I 0.43 H Triglycerides Cholesterol Total LDL Cholesterol HDL Cholesterol TSH Opiates Screen Methadone Screen Barbiturate Screen Phencyclidine Screen Ur Amphetamines Screen MDMA (Ecstasy) Screen Benzodiazepines Screen Cocaine Screen U Marijuana (THC) Screen RPR Titer 12/11/16 12/11/16 12/11/16 05:35 05:35 05:35 WBC RBC Hgb Hct MCV MCH MCHC RDW Plt Count MPV Neutrophils % Lymphocytes % Monocytes % Eosinophils % Basophils % INR PTT (Actin FS) Sodium 135 L Potassium 3.2 L Chloride 102 Carbon Dioxide 22 Anion Gap 11 BUN 7 D Creatinine 0.6 Random Glucose 128 H Calcium 8.7 Troponin I 0.75 H* Triglycerides 73 Cholesterol 141 Total LDL Cholesterol 74 HDL Cholesterol 65 H TSH 0.23 L Opiates Screen Methadone Screen Barbiturate Screen Phencyclidine Screen Ur Amphetamines Screen MDMA (Ecstasy) Screen Benzodiazepines Screen Cocaine Screen U Marijuana (THC) Screen RPR Titer Nonreactive 12/11/16 06:05 WBC RBC Hgb Hct MCV MCH MCHC RDW Plt Count MPV Neutrophils % Lymphocytes % Monocytes % Eosinophils % Basophils % INR PTT (Actin FS) Sodium Potassium Chloride Carbon Dioxide Anion Gap BUN Creatinine Random Glucose Calcium Troponin I Triglycerides Cholesterol Total LDL Cholesterol HDL Cholesterol TSH Opiates Screen Negative Methadone Screen Negative Barbiturate Screen Negative Phencyclidine Screen Negative Ur Amphetamines Screen Negative MDMA (Ecstasy) Screen Negative Benzodiazepines Screen Negative Cocaine Screen Negative U Marijuana (THC) Screen Negative RPR Titer Active Medications Generic Name Dose Route Start Last Admin Trade Name Freq PRN Reason Stop Dose Admin Aspirin 81 mg 12/11/16 10:00 12/11/16 10:01 Ecotrin - PO 81 mg DAILY JENNYFER Administration Atorvastatin Calcium 80 mg 12/11/16 22:00 Lipitor - PO HS JENNYFER Heparin Sodium (Porcine) 5,000 unit 12/10/16 22:45 12/11/16 05:26 Heparin - SQ 5,000 unit TID JENNYFER Administration Sodium Chloride 1,000 mls @ 75 mls/hr 12/11/16 07:45 12/11/16 08:45 Normal Saline - IV 75 mls/hr ASDIR JENNYFER Administration Metoprolol Tartrate 5 mg 12/11/16 01:41 12/11/16 05:26 Lopressor Injection - IVPUSH 5 mg Q4H PRN Administration HYPERTENSION Ondansetron HCl 4 mg 12/10/16 22:15 12/11/16 09:00 Zofran Injection IVPB 4 mg Q6H PRN Administration NAUSEA Pantoprazole Sodium 40 mg 12/11/16 10:00 12/11/16 10:01 Protonix - PO 40 mg DAILY JENNYFER Administration ASSESSMENT/PLAN: Patient is a 60 year old female with PMH genital herpes who presents to the ED from [facility] for acute onset of confusion and amnesia. Patient admitted for transient retrograde amnesia . 1. Acute transient retrograde amnesia -NIHSS: 1 -MMSE: 24/30 -On recommended ASA 81 mg PO and Lipitor 80 mg PO as per neuro -ECHO report -RPR negative, Urine Tox, Lipid panel ordered -Speech and Swallow- regular diet -Will consider LP 2. Elevated Troponins -Troponins trending up: 0.06, 0.43, 0.75 -Fourth troponin 0.7 trending down -Continue aspirin 81 mg PO 3. Elevated BP -Lopressor 5mg Q4H PRN -Continue to monitor BP 4. Mid-epigastric Abdominal pain -Protonix daily -Zofran 4mg Q6H PRN F/E/N -IV NS @50mls/hr Prophylaxis -Heparin 5000 units SQ Q8H for DVT -Protonix for GI Visit type - Emergency Visit Emergency Visit: No - New Patient This patient is new to me today: No - Critical Care Critical Care patient: No
[2016-12-11] MEDS ORDERED: FAMOTIDINE 20 MG/50 ML IVPB 50 ML IVPB ONE (13:03)
--- NOTE | 2016-12-11 13:05 | EKG ---
Test Reason : Blood Pressure : / mmHG Vent. Rate : 083 BPM Atrial Rate : 083 BPM P-R Int : 142 ms QRS Dur : 092 ms QT Int : 416 ms P-R-T Axes : 066 068 053 degrees QTc Int : 488 ms NORMAL SINUS RHYTHM NONSPECIFIC ST ABNORMALITY ABNORMAL ECG WHEN COMPARED WITH ECG OF 11-DEC-2016 05:26, NO SIGNIFICANT CHANGE WAS FOUND Confirmed by KINGSLEY ADHIKARI MD ([id number]) on 12/11/2016 1:05:38 PM Referred By: SHANA MCINTOSH Confirmed By:KINGSLEY ADHIKARI MD
--- NOTE | 2016-12-11 13:07 | EKG ---
Test Reason : Blood Pressure : / mmHG Vent. Rate : 062 BPM Atrial Rate : 062 BPM P-R Int : 136 ms QRS Dur : 096 ms QT Int : 480 ms P-R-T Axes : 055 064 060 degrees QTc Int : 487 ms NORMAL SINUS RHYTHM NONSPECIFIC ST ABNORMALITY ABNORMAL ECG WHEN COMPARED WITH ECG OF 10-DEC-2016 18:25, NO SIGNIFICANT CHANGE WAS FOUND Confirmed by KINGSLEY ADHIKARI MD ([id number]) on 12/11/2016 1:07:43 PM Referred By: MERCED REYNA Confirmed By:KINGSLEY ADHIKARI MD
--- NOTE | 2016-12-11 13:10 | EKG ---
Test Reason : Blood Pressure : / mmHG Vent. Rate : 072 BPM Atrial Rate : 072 BPM P-R Int : 138 ms QRS Dur : 098 ms QT Int : 422 ms P-R-T Axes : 051 064 053 degrees QTc Int : 462 ms NORMAL SINUS RHYTHM NORMAL ECG NO PREVIOUS ECGS AVAILABLE Confirmed by KINGSLEY ADHIKARI MD ([id number]) on 12/11/2016 1:09:46 PM Referred By: Confirmed By:KINGSLEY ADHIKARI MD
--- NOTE | 2016-12-11 13:28 | PN ---
Teaching Attending Note Name of Resident: Griselda Cerda ATTENDING PHYSICIAN STATEMENT I saw and evaluated the patient. I reviewed the resident's note and discussed the case with the resident. I agree with the resident's findings and plan as documented. SUBJECTIVE: NO OBJECTIVE: Vital Signs Temperature 98.6 F 12/11/16 05:25 Pulse Rate 68 12/11/16 06:42 Respiratory Rate 18 12/11/16 06:42 Blood Pressure 157/77 12/11/16 06:42 O2 Sat by Pulse Oximetry (%) 100 12/10/16 21:45 CBC, BMP 12/11/16 05:35 12/11/16 05:35 MRI of the brain - no acute abnormality ECHO p EKG upon presentation - NSR no ST changes EKG today - T wave ASSESSMENT AND PLAN:
[2016-12-11] MEDS: ENOXAPARIN NA (PORCINE) 60 MG/0.6 ML DISP.SYRIN SQ SCH ×2 (13:45→21:23)
--- NOTE | 2016-12-11 14:47 | PN ---
Teaching Attending Note Name of Resident: Chris Ohara ATTENDING PHYSICIAN STATEMENT I saw and evaluated the patient. I reviewed the resident's note and discussed the case with the resident. I agree with the resident's findings and plan as documented. SUBJECTIVE: back to baseline of mental status denies chest pain or SOB reports mild epigastric abdominal discomfort OBJECTIVE: Vital Signs Temperature 98.3 F 12/11/16 13:54 Pulse Rate 83 12/11/16 13:54 Respiratory Rate 16 12/11/16 13:54 Blood Pressure 168/86 12/11/16 13:54 O2 Sat by Pulse Oximetry (%) 100 12/11/16 09:00 CBC, BMP 12/11/16 05:35 12/11/16 05:35 Abnormal Lab Results 12/10/16 12/10/16 12/10/16 18:06 18:06 18:40 WBC 13.3 H Neutrophils % 89.4 H Lymphocytes % 5.5 L Sodium 133 L Potassium Carbon Dioxide 19 L Random Glucose 133 H Troponin I 0.06 H HDL Cholesterol TSH Urine Protein 1+ H Urine Ketones 1+ H Urine Blood 2+ H 12/10/16 12/11/16 12/11/16 23:30 05:35 05:35 WBC 14.5 H Neutrophils % 87.9 H Lymphocytes % 6.0 L Sodium 135 L Potassium 3.2 L Carbon Dioxide Random Glucose 128 H Troponin I 0.43 H HDL Cholesterol 65 H TSH Urine Protein Urine Ketones Urine Blood 12/11/16 05:35 WBC Neutrophils % Lymphocytes % Sodium Potassium Carbon Dioxide Random Glucose Troponin I 0.75 H* HDL Cholesterol TSH 0.23 L Urine Protein Urine Ketones Urine Blood MRI of the brain - no acute abnormality ECHO p EKG upon presentation - NSR no ST changes EKG today - no acute change ASSESSMENT AND PLAN: 1. Altered mental status - likely secondary to Transient Global Amnesia vs TIA- now mostly resolved. MRI -. - obtain ECHO - BP control - ASA 2. Elevated cardiac enzymes - possibly due to HTN vs TIA, NSTEMI can not be excluded - Echo - asa - Lovenox one dose - cardiology eval discussed with patient and family in extent
--- NOTE | 2016-12-11 18:05 | CON.CARD ---
Cardiology Consult (text) - Consultation Consultation Note: CC: elevated troponins 60 yo with h/o HSV on valtrex presents with altered mental status - imaging neg for CVA- thought to have transient global amnesia. Hosp course c/b hyponatremia/ab TSH and mildly elevated troponins. Discrete episode of short-term memory loss. Now resolved. No prior anginal sx's. Swims regular without angina or limitations. no recent change in exercise capacity. Also + mid-epigastric pain associated with one episode of nonbloody vomiting while at hospital. + hypertension here. denies prior h/o htn. --> attributes this to anxiety and discomfort. Otherwise, patient denies fever, chills, headaches, acute vision changes, chest pain, palpitations, shortness of breath, dysuria, frequency, hematuria. Patient' s denies that she uses any drugs or toxic ingestion. + chronic insomnia for which she takes medical marijuana on a nightly basis. No recent change in supply/brand of marijuana. no similar events in past . no hx of seizure. no cp, sob, orthopnea, pnd, le edema, palps, dizziness, bleeding. no MORA or focal motor,sensory c/o, no f/c/s, cough, congestion, rashes, . hyponatremia has improved with ivf pmhx/pshx: per hpi social hx: + medical marijuana, social etoh (few glasses of wine a wekk), no tobacco family hx: no h/o cad ros: per hpi Ambulatory Orders Ibandronate Sodium [Boniva] 150 mg PO MONTHLY 12/11/16 Valacyclovir HCl [Valtrex -] 500 mg PO BID PRN 12/11/16 Current Medications Aspirin (Ecotrin -) 81 mg PO DAILY [facility] Last Admin: 12/11/16 10:01 Dose: 81 mg Atorvastatin Calcium (Lipitor -) 80 mg PO HS [facility] Enoxaparin Sodium (Lovenox -) 60 mg SQ BID [facility] Last Admin: 12/11/16 13:45 Dose: 60 mg Sodium Chloride (Normal Saline -) 1,000 mls @ 75 mls/hr IV ASDIR [facility] Last Admin: 12/11/16 08:45 Dose: 75 mls/hr Famotidine/Sodium Chloride (Pepcid 20 Mg Premixed Ivpb -) 50 mls @ 100 mls/hr IVPB BID [facility] Metoprolol Tartrate (Lopressor Injection -) 5 mg IVPUSH Q4H PRN PRN Reason: HYPERTENSION Last Admin: 12/11/16 05:26 Dose: 5 mg Pantoprazole Sodium (Protonix -) 40 mg PO DAILY [facility] Last Admin: 12/11/16 10:01 Dose: 40 mg Vital Signs - 24 hr 12/10/16 12/10/16 12/10/16 18:45 18:59 19:09 Temperature Pulse Rate Pulse Rate [ 78 78 Apical] Respiratory 16 16 Rate Blood Pressure Blood Pressure 187/98 174/102 178/95 [Right Arm] O2 Sat by Pulse 98 98 Oximetry (%) 12/10/16 12/10/16 12/10/16 20:57 21:45 23:45 Temperature 98.8 F 99.2 F Pulse Rate 70 80 Pulse Rate [ 75 Apical] Respiratory 20 18 18 Rate Blood Pressure 161/90 166/92 Blood Pressure 175/95 [Right Arm] O2 Sat by Pulse 98 100 Oximetry (%) 12/11/16 12/11/16 12/11/16 00:02 01:30 02:00 Temperature 99.4 F Pulse Rate 70 66 72 Pulse Rate [ Apical] Respiratory 18 18 Rate Blood Pressure 166/92 184/92 163/89 Blood Pressure [Right Arm] O2 Sat by Pulse Oximetry (%) 12/11/16 12/11/16 12/11/16 05:25 05:26 05:55 Temperature 98.6 F Pulse Rate 72 68 72 Pulse Rate [ Apical] Respiratory 18 18 Rate Blood Pressure 183/62 183/62 182/90 Blood Pressure [Right Arm] O2 Sat by Pulse Oximetry (%) 12/11/16 12/11/16 12/11/16 06:42 09:00 10:00 Temperature 98.7 F Pulse Rate 68 77 Pulse Rate [ Apical] Respiratory 18 18 Rate Blood Pressure 157/77 151/74 Blood Pressure [Right Arm] O2 Sat by Pulse 100 Oximetry (%) 12/11/16 13:54 Temperature 98.3 F Pulse Rate 83 Pulse Rate [ Apical] Respiratory 16 Rate Blood Pressure 168/86 Blood Pressure [Right Arm] O2 Sat by Pulse Oximetry (%) Intake & Output 12/09/16 12/10/16 12/11/16 12/12/16 07:59 07:59 07:59 07:59 Intake Total 100 600 Output Total 400 Balance -300 600 Weight 125 lb 3.2 oz nad, calm jvd flat, neck supple ctab, nl effort rrr nl s1, s2 no mrg + bs soft nt nd ext without e/c/c + dp/pt aaox3 no carotid bruits no jaundice, diaphoresis CBC, BMP 12/11/16 05:35 12/11/16 05:35 Laboratory Tests 12/10/16 12/10/16 12/11/16 18:06 23:30 05:35 Calcium 9.4 Total Bilirubin 0.4 AST 22 ALT 28 Alkaline Phosphatase 74 Creatine Kinase 68 Troponin I 0.06 H 0.43 H Albumin 3.9 Triglycerides 73 Cholesterol 141 Total LDL Cholesterol 74 HDL Cholesterol 65 H TSH Opiates Screen Methadone Screen Barbiturate Screen Phencyclidine Screen Ur Amphetamines Screen MDMA (Ecstasy) Screen Benzodiazepines Screen Cocaine Screen U Marijuana (THC) Screen RPR Titer 12/11/16 12/11/16 12/11/16 05:35 05:35 06:05 Calcium Total Bilirubin AST ALT Alkaline Phosphatase Creatine Kinase Troponin I 0.75 H* Albumin Triglycerides Cholesterol Total LDL Cholesterol HDL Cholesterol TSH 0.23 L Opiates Screen Negative Methadone Screen Negative Barbiturate Screen Negative Phencyclidine Screen Negative Ur Amphetamines Screen Negative MDMA (Ecstasy) Screen Negative Benzodiazepines Screen Negative Cocaine Screen Negative U Marijuana (THC) Screen Negative RPR Titer Nonreactive 12/11/16 14:10 Calcium Total Bilirubin AST ALT Alkaline Phosphatase Creatine Kinase Troponin I 0.73 H* Albumin Triglycerides Cholesterol Total LDL Cholesterol HDL Cholesterol TSH Opiates Screen Methadone Screen Barbiturate Screen Phencyclidine Screen Ur Amphetamines Screen MDMA (Ecstasy) Screen Benzodiazepines Screen Cocaine Screen U Marijuana (THC) Screen RPR Titer EKG 12/10: wnl EKG 12/11 x 2: nsr. prolonged qtc. subtle non-specific diffuse ST sagging tele: NSR, sinus tach. one episode of 3beat nsvt. echo 11/2016: nl lv/v. 1+ mr cxr: wnl head CT/brain MRI: neg for stroke 60 yo with no sig pmhx presents with altered mental status imaging neg for CVA- thought to have transient global amnesia. Hosp course c/b hyponatremia/ab TSH and mildly elevated troponins. elevated troponin - troponin peak at the lower limit of positive. (very small elevation). Nl ck. Echo wnl. EKG with non-specific changes. Low suspicion for ACS. No need for therapeutic lovenox dosing, can lower dose to dvt prophylaxis dose. Con't statin until stress echo. Con't asa - No significant CAD RF's and there are reports of transient global amnesia causing small troponin elevations. However, EKG is not totally normal, and patient with ongoing abdominal pain ?anginal equivalent. Will further evaluate with stress echo in am to definitely rule out cad as etiology. - lyte repletion prolonged qt - not present on admit. ? worsened by zofran - would avoid qt prolonging meds including zofran and pepcid --> stopping famotidine bid (pmd can replace with non-qt prolonging alternative if needed) - lyte repletion htn - no known diagnosis. Improving. Will give one dose of norvasc and con't to assess need for ongoing therapy. transient global amnesia - improving, neuro following Low TSH - Management per pmd.
[2016-12-11] MEDS ORDERED: ALPRAZolam 0.25 MG TABLET PO ONE ×2 (20:59→21:07)
[2016-12-11] MEDS ORDERED: ATORVASTATIN CA 80 MG TABLET (FP) PO SCH (22:00)
[2016-12-11] MEDS ORDERED: FAMOTIDINE 20 MG/50 ML IVPB 50 ML IVPB SCH (22:00)
[2016-12-11] MEDS ORDERED: amLODIPine BESYLATE 5 MG TABLET (FP) PO ONE (23:15)
[2016-12-12] MEDS ORDERED: MAG HYDROX/AL HYDROX/SIMETH 30 ML UNIT-DOSE CUP PO ONE (01:55)
[2016-12-12] MEDS ORDERED: amLODIPine BESYLATE 5 MG TABLET (FP) PO ONE (02:00)
[2016-12-12] MEDS: METOPROLOL TARTRATE 5 MG/5 ML VIAL IVPUSH PRN (02:15)
[2016-12-12 07:03] LABS: ANION GAP 8 (8-16); CALCIUM 8.9 mg/dL (8.5-10.1); CO2 26 mmol/L (21-32); CREATININE 0.6 mg/dL (0.55-1.02); GLUCOSE,RANDOM 111 mg/dL (74-106); MAGNESIUM 2.4 mg/dL (1.8-2.4)
[2016-12-12] MEDS: PANTOPRAZOLE 40 MG TABLET (FP) PO SCH ×2 (10:08→14:21)
[2016-12-12] MEDS: ASPIRIN COATED 81 MG TABLET.EC PO SCH ×2 (10:08→14:21)
--- NOTE | 2016-12-12 10:34 | PN ---
Progress Note (short form) - Note Progress Note: s: no cp sob palps dizzy o: Vital Signs Period Temp Pulse Resp BP Sys/Floyd Pulse Ox Last 24 Hr 98.0 F-99.9 F 81-122 16-18 131-168/80-98 96 nad, calm jvd flat, neck supple ctab, nl effort rrr nl s1, s2 no mrg + bs soft nt nd ext without e/c/c aaox3 no jaundice, diaphoresis Current Medications Generic Name Dose Route Start Last Admin Trade Name Freq PRN Reason Stop Dose Admin Aspirin 81 mg 12/11/16 10:00 12/12/16 10:08 Ecotrin - PO Not Given DAILY JENNYFER Atorvastatin Calcium 80 mg 12/11/16 22:00 12/11/16 21:24 Lipitor - PO 80 mg HS JENNYFER Administration Enoxaparin Sodium 60 mg 12/13/16 10:00 Lovenox - SQ DAILY JENNYFER Sodium Chloride 1,000 mls @ 75 mls/hr 12/11/16 07:45 12/11/16 08:45 Normal Saline - IV 75 mls/hr ASDIR JENNYFER Administration Metoprolol Tartrate 5 mg 12/11/16 01:41 12/12/16 02:15 Lopressor Injection - IVPUSH 5 mg Q4H PRN Administration HYPERTENSION Pantoprazole Sodium 40 mg 12/11/16 10:00 12/12/16 10:08 Protonix - PO Not Given DAILY JENNYFER CBC, BMP 12/11/16 05:35 12/12/16 05:40 EKG 12/10: wnl EKG 12/11 x 2: nsr. prolonged qtc. subtle non-specific diffuse ST sagging tele: NSR, sinus tach. echo 11/2016: nl lv/v. 1+ mr cxr: wnl head CT/brain MRI: neg for stroke 60 yo with no sig pmhx presents with altered mental status imaging neg for CVA- thought to have transient global amnesia. Hosp course c/b hyponatremia/ab TSH and mildly elevated troponins. elevated troponin - troponin peak at the lower limit of positive. (very small elevation). Nl ck. Echo wnl. EKG with non-specific changes. Low suspicion for ACS. No need for therapeutic lovenox dosing. Con't statin. Con't asa - No significant CAD RF's and there are reports of transient global amnesia causing small troponin elevations. However, EKG is not totally normal. Will further evaluate with stress echo today. prolonged qt - not present on admit. ? worsened by zofran - would avoid qt prolonging meds including zofran and pepcid --> stopping famotidine bid (pmd can replace with non-qt prolonging alternative if needed) - lyte repletion htn - no known diagnosis, elevated here at times. outpt monitoring to see if will need [facility] meds. transient global amnesia - improving, neuro following Low TSH - Management per pmd. if stress echo unremarkable then ok for dc from cardiac pov
[2016-12-12 10:54] VITALS: BP 127/75; PULSE 92; TEMP 97.9
--- NOTE | 2016-12-12 11:24 | PN ---
Teaching Attending Note Name of Resident: Griselda Cerda ATTENDING PHYSICIAN STATEMENT I saw and evaluated the patient. I reviewed the resident's note and discussed the case with the resident. I agree with the resident's findings and plan as documented. SUBJECTIVE:no chest pain , OBJECTIVE: Vital Signs Temperature 97.9 F 12/12/16 10:00 Pulse Rate 92 H 12/12/16 10:00 Respiratory Rate 18 12/12/16 10:00 Blood Pressure 127/75 12/12/16 10:00 O2 Sat by Pulse Oximetry (%) 98 12/12/16 09:00 DANIELLE HERZOG CVS wnl no jvd RS CTA b/l Abd soft NT CBC, BMP 12/11/16 05:35 12/12/16 05:40 ASSESSMENT AND PLAN: 1. Altered mental status - likely secondary to Transient Global Amnesia . Now resolved. 2. Elevated cardiac enzymes - possibly due to TGA - MIBI today, if negative - may d/c home 3.Prolonged QT - zofran is discontinued
--- NOTE | 2016-12-12 20:44 | DS ---
Physical Exam: SUBJECTIVE: Patient seen and examined at bedside. No acute events overnight. Patient resting comfortably today and states that her abdominal pain has subsided. Denies any weakness in her extremities, headaches, chest pain, or shortness of breath. OBJECTIVE: Vital Signs Period Temp Pulse Resp BP Sys/Floyd Pulse Ox Last 24 Hr 97.9 F-99.5 F 92-122 18-18 127-151/75-98 96-98 PHYSICAL EXAM GENERAL: The patient is awake, alert, and fully oriented, in no acute distress. HEAD: Normal with no signs of trauma. EYES: PERRL, extraocular movements intact, sclera anicteric, conjunctiva clear. ENT: Ears normal, nares patent, oropharynx clear without exudates, moist mucous membranes. NECK: Trachea midline, supple. LUNGS: Breath sounds equal, clear to auscultation bilaterally, no wheezes, no crackles, no accessory muscle use. HEART: Regular rate and rhythm, S1, S2 without murmur, rub or gallop. ABDOMEN: Soft, nontender, nondistended, normoactive bowel sounds, no guarding, no rebound, no hepatosplenomegaly, no masses. EXTREMITIES: 2+ posterior tibial pulses, warm, well-perfused, no edema. NEUROLOGICAL: Cranial nerves II through XII grossly intact. Normal speech. Cerebellar functioning intact. Motor strength 5/5 in upper and lower extremities. LABS Vitals Trend 12/10/16 12/10/16 12/10/16 18:00 18:45 18:59 Temperature 98.0 F Pulse Rate 84 Respiratory 18 16 16 Rate Blood Pressure 172/96 12/10/16 12/10/16 12/10/16 20:57 21:45 23:45 Temperature 98.8 F 99.2 F Pulse Rate 70 80 Respiratory 20 18 18 Rate Blood Pressure 161/90 166/92 12/11/16 12/11/16 12/11/16 00:02 01:30 02:00 Temperature 99.4 F Pulse Rate 70 66 72 Respiratory 18 18 Rate Blood Pressure 166/92 184/92 163/89 12/11/16 12/11/16 12/11/16 05:25 05:26 05:55 Temperature 98.6 F Pulse Rate 72 68 72 Respiratory 18 18 Rate Blood Pressure 183/62 183/62 182/90 12/11/16 12/11/16 12/11/16 06:42 10:00 13:54 Temperature 98.7 F 98.3 F Pulse Rate 68 77 83 Respiratory 18 18 16 Rate Blood Pressure 157/77 151/74 168/86 12/11/16 12/11/16 12/12/16 18:12 21:33 02:00 Temperature 99.9 F H 99.5 F 98.7 F Pulse Rate 81 99 H 94 H Respiratory 18 18 18 Rate Blood Pressure 157/94 151/98 146/93 12/12/16 12/12/16 12/12/16 02:15 06:00 10:00 Temperature 98.0 F 97.9 F Pulse Rate 122 H 96 H 92 H Respiratory 18 18 Rate Blood Pressure 146/93 131/80 127/75 Laboratory Tests 12/10/16 12/10/16 12/11/16 18:06 18:06 05:35 WBC 13.3 H 14.5 H Sodium 133 L Potassium 3.6 Random Glucose 133 H Troponin I 0.06 H HDL Cholesterol TSH 12/11/16 12/11/16 12/12/16 05:35 05:35 05:40 WBC Sodium 135 L 141 Potassium 3.2 L 3.7 Random Glucose 128 H 111 H Troponin I HDL Cholesterol 65 H TSH 0.23 L Laboratory tests last 24 hours 12/12/16 05:40 Sodium 141 Potassium 3.7 Chloride 107 Carbon Dioxide 26 Anion Gap 8 BUN 7 Creatinine 0.6 Random Glucose 111 H Calcium 8.9 Magnesium 2[address]: no acute pathology EKG: nonspecific ST abnormality Repeat EKG: no change seen MRI brain: volume loss, no new stroke noted CXR: WNL Carotid Doppler: minimal atherosclerotic disease, no significant stenoses Stress ECHO: [address] depressions, resolved within 3 min recovery, pt asymptomatic HOSPITAL COURSE: Date of Admission:12/10/16 Date of Discharge: 12/12/16 Admit diagnosis: Transient global ischemia Pre-admission course: Patient is a 60 year old female with PMH of genital herpes, who was brought in by EMS for acute onset of confusion and amnesia. Patient's reported that she was last at her baseline before going to work. He reported receiving multiple phone calls from her stating that she was not feeling well. On admission, patient was unable to recall what happened during the day. Patient's reported that this was very unusual and that had no history of memory loss. Patient also complained of non-radiating mid-epigastric pain associated with one episode of nonbloody vomiting in the ED. Patient is unable to recall when the pain began and has no recollection of vomiting. Denies fever, chills, headaches, acute vision changes, chest pain, palpitations, shortness of breath, dysuria, frequency, hematuria, or any drug use. Hospital course: Based on the patient's clinical picture, team aimed to rule out stroke and ACS. Patient was started on aspirin and lipitor prophylactically. In addition, since her BP was elevated on admission (175/95) she was given labetalol. Head CT was negative, and EKG revealed nonspecific ST abnormality, while MRI showed volume loss, but no acute pathology. Carotid doppler showed minimal atherosclerotic disease with no significant stenoses. Troponins were also trended, with values of 0.06, 0.43, 0.75, 0.7. Cardio ruled out ACS, as troponins had small elevation and EKG had non-specific changes and Stress Echo revealed [address] depressions which resolved within 3 min recovery and pt was asymptomatic.As per cardio, it is possible that patient's transient global amnesia caused such elevations in troponin level. Patient and her will follow up with flight nurse and neurologist in one week. She is being started on Lipitor 80mg daily night and aspirin 81mg (Ecotrin ) daily. She will discuss with her primary care physician continuation of aspirin and lipitor. Minutes to complete discharge: 32 Discharge Summary Reason For Visit: TRANSIENT GLOBAL AMNESIA Condition: Stable - Instructions Diet, Activity, Other Instructions: You were recently in the hospital for transient global amnesia. You also had elevated cardiac enzyme levels and your stress ECHO test reported a 1mm horizontal ST segment depression, which resolved at three minutes into recovery. The test concluded fair exercise capacity with no echocardiographic evidence of ischemia. You may resume your daily activities as tolerated. Please follow up with a flight nurse and neurologist in one week. Information for Dr. Delarosa and Dr. De Leon are provided. You are being started on Lipitor 80mg daily, take at night and aspirin 81mg ( Ecotrin which is gentler on your stomach) daily. Discuss with your primary care physician continuation of aspirin and lipitor. If you or your family notice any change in your mental status, or if you have any shortness of breath, chest pain, or any new symptoms, please return to the hospital. Referrals: Kvng Lora MD [Staff Physician] - Galo De Leon DO [Staff Physician] - Felipe Lundy [Primary Care Provider] - Disposition: HOME - Home Medications Comprehensive Discharge Medication List: Ambulatory Orders Ibandronate Sodium [Boniva] 150 mg PO MONTHLY 12/11/16 Aspirin Coated [Ecotrin -] 81 mg PO DAILY #30 tab 12/12/16 Atorvastatin Ca [Lipitor] 80 mg PO HS #30 tablet 12/12/16 This patient is new to me today: No Emergency Visit: No Critical Care patient: No - Discharge Referral Referred to [facility] No
[2016-12-13] MEDS ORDERED: ENOXAPARIN NA (PORCINE) 60 MG/0.6 ML DISP.SYRIN SQ SCH (10:00)
== END 2016-12-12 17:46 | disposition home or self-care (01) | DRG 71 ==
LOC: JER 17:52 → JERBED 20:48 → J4S 21:52
PROVIDERS: ADMIT Internal Medicine; ATTEND Internal Medicine
DX: G45.4 Transient global amnesia (principal); E87.1 Hypo-osmolality and hyponatremia; I10 Essential (primary) hypertension; R41.0 Disorientation, unspecified; R74.8 Abnormal levels of other serum enzymes; K52.9 Noninfective gastroenteritis and colitis, unspecified; F41.9 Anxiety disorder, unspecified; F51.04 Psychophysiologic insomnia; I45.81 Long QT syndrome
CPT/HCPCS: 36415; 70450-TC; 70551-TC; 71010-TC; 80048; 80053; 80061; 80307; 81003; 81015; 82550; 83721; 83735; 84443; 84484; 85025; 85610; 85730; 86593; 87086; 93005; 93010; 93306-TC; 93351; 93880-TC; 97116-GP; 97161-GP; 99285-25; J1644